=== PATIENT | male | born 1960 | race Caucasian/White ===

== ENCOUNTER 2017-11-09 08:02 | Inpatient (IN) | payer OTHER ==
[2017-11-09] MEDS ORDERED: Sodium Chloride 0.9% 1,000 ML IV ONE (08:55)
[2017-11-09 09:32] LABS: BASO % 0.6 % (0.0-2.0); EOS # 0.1 K/uL (0.0-0.7); EOS % 2.2 % (0.0-4.0); HEMOGLOBIN 14.6 g/dL (12.0-18.0); LYMPH # 1.9 K/uL (1.0-4.3); LYMPH % 28.8 % (20.0-40.0); MEAN CELL VOLUME 87.9 fL (80.0-94.0); MEAN CORPUSCULAR HEMOGLOBIN 30.1 pg (27.0-31.0); MEAN CORPUSCULAR HGB CONC 34.2 g/dL (33.0-37.0); MEAN PLATELET VOLUME 10.9 fL (7.2-11.7); MONO # 0.6 K/uL (0.0-0.8); NEUT # 3.9 K/uL (1.8-7.0); NEUT % 59.4 % (50.0-75.0); NRBC % 0.1 % (0.0-2.0); RBC 4.85 Mil/uL (4.40-5.90); RED CELL DISTRIBUTION WIDTH 12.7 % (11.5-14.5); WHITE BLOOD COUNT 6.5 K/uL (4.8-10.8)
[2017-11-09 09:52] LABS: ALT/SGPT 52 U/L (21-72); AST/SGOT 47 U/L (17-59); BLOOD UREA NITROGEN 14 mg/dL (9-20); CALCIUM 9.1 mg/dl (8.6-10.4); GFR NON-AFRICAN AMERICAN > 60
[2017-11-09 09:57] LABS: INR 1.1; PROTHROMBIN TIME 12.1 SECONDS (9.7-12.2)
[2017-11-09 10:05] LABS: ALB/GLOB RATIO 1.2 (1.0-2.1); ALBUMIN 4.7 g/dL (3.5-5.0)
[2017-11-09 10:06] LABS: SQUAMOUS EPITHIAL 8 /hpf (0-5); URINE BACTERIA RARE (<OCC); URINE BILIRUBIN NEGATIVE (NEGATIVE); URINE BLOOD NEGATIVE (NEGATIVE); URINE CLARITY Hazy (Clear); URINE COLOR Yellow (YELLOW); URINE GLUCOSE (UA) NORMAL (Normal); URINE LEUKOCYTE ESTERASE TRACE Leu/uL (Negative); URINE PROTEIN NEGATIVE (NEGATIVE); URINE UROBILINOGEN NORMAL mg/dL (0.2-1.0)
[2017-11-09] MEDS ORDERED: ceFAZolin 1 gm in NS 2 GM/200 ML BAG IVPB ONE (10:33)
[2017-11-09] MEDS ORDERED: Propofol 10 mg/ml Inj (20 ML) ONE (10:34)
[2017-11-09] MEDS ORDERED: Midazolam 2 MG/2 ML VIAL ONE (10:34)
[2017-11-09] MEDS ORDERED: Bupivacaine 0.25% 20 ML INJ IJ ONE (10:50)
[2017-11-09] MEDS ORDERED: Lidocaine Hydrochloride 10 ML INJ ONE (10:50)
[2017-11-09] MEDS ORDERED: HYDROmorphone 0.5 mg/0.5 ml ISec IVP PRN (11:28)
[2017-11-09] MEDS ORDERED: Oxycodone/Acetaminophen 5/325 mg Tab PO PRN (11:31)
[2017-11-09] MEDS ORDERED: Lactated Ringer's 1,000 ML IV ONE (15:10)
--- NOTE | 2017-11-09 16:21 | C.PDOC ---
History Of Present Illness 57 y/o male presents to ED with c/o pain to veins b/l thighs. PT notes that he had this for many years but pain worsened recently. Patient denies trauma, discharge, fever, redness, change in sensation, trauma, chest pain, sob, sym ptoms or any other complaints at this time. Time Seen by Provider: 11/09/17 08:31 Chief Complaint (Nursing): Medical Clearance History Per: Patient History/Exam Limitations: no limitations Onset/Duration Of Symptoms: Days Current Symptoms Are (Timing): Still Present Past Medical History Reviewed: Historical Data, Nursing Documentation, Vital Signs Vital Signs: Last Vital Signs Temp 98.4 F 11/10/17 17:36 Pulse 72 11/10/17 17:36 Resp 20 11/10/17 17:36 BP 128/73 11/10/17 17:36 Pulse Ox 99 11/11/17 22:29 - Medical History PMH: No Chronic Diseases Other Surgeries: nasal surgery Family History: States: [place] (cabg) - Social History Hx Alcohol Use: Yes Hx Substance Use: No Review Of Systems Constitutional: Negative for: Fever, Chills Musculoskeletal: Positive for: Leg Pain Skin: Negative for: Rash Neurological: Negative for: Weakness, Numbness Physical Exam - Physical Exam Appears: Non-toxic, No Acute Distress Skin: Warm, Dry, No Rash Head: Atraumatic, Normacephalic Eye(s): bilateral: Normal Inspection, EOMI Nose: Normal Oral Mucosa: Moist Neck: Normal ROM, Supple Chest: Symmetrical Cardiovascular: Rhythm Regular Respiratory: Normal Breath Sounds, No Rales, No Rhonchi, No Wheezing Extremity: Tenderness (Mild to left lateral thigh), Capillary Refill (<2 sec), No Deformity, Other (Spider veins bilaterally to lateral thighs. No erythema) Pulses: Left Dorsalis Pedis: Normal, Right Dorsalis Pedis: Normal Neurological/Psych: Oriented x3, Normal Speech, Normal Motor, Normal Sensation ED Course And Treatment - Laboratory Results Result Diagrams: 11/10/17 06:14 11/10/17 06:14 O2 Sat by Pulse Oximetry: 99 (RA) Pulse Ox Interpretation: Normal Progress Note: Case discussed with dr Yeboah who instructs admission under his service. Disposition - Disposition Disposition: HOSPITALIZED Disposition Time: 17:00 Condition: STABLE - Clinical Impression Clinical Impression: Spider veins - PA / [employer] / Resident Statement MD/DO has reviewed & agrees with the documentation as recorded. - Scribe Statement The provider has reviewed the documentation as recorded by the Gibran Mujica All medical record entries made by the Gibran were at my direction and personally dictated by me. I have reviewed the chart and agree that the record accurately reflects my personal performance of the history, physical exam, medical decision making, and the department course for this patient. I have also personally directed, reviewed, and agree with the discharge instructions and disposition.
[2017-11-09] MEDS: ceFAZolin IV 1 gm in Dextrose 1 GM/50 ML BAG IVPB SCH ×2 (19:30→21:10)
[2017-11-09 20:16] VITALS: RESP 20
--- NOTE | 2017-11-09 21:11 | CP.PCM.CON ---
History of Present Illness - History of Present Illness History of Present Illness: Medicine Consult Note - Dr Loera HPI: Patient is a 57 year old male with no significant past medical history who presented to the hospital for infected thigh veins bilaterally. Patient went to the OR with Dr Yeboah today for excision of bilateral tumors of hips. Patient tolerated the procedure well. He denies any pain at this time. He is ambulating and tolerating diet. Patient admitted overnight for IV antibiotics. He denies headaches, dizziness, fevers, chills, chest pain, palpitations, sob, abdominal pain, urinary symptoms, changes in bowel habits. PMD: Dr Loera Allergies: NKDA Medications: Denies Medical History: Denies Surgical History: Nasal fracture repair years ago Social History: Drinks alcohol occasionally, denies tobacco or drug use; works for [employer] Family History: Mother - [place], CABG (); Father - Prostate cancer, DM Past Patient History - Past Medical History & Family History Past Medical History?: Yes - Past Social History Smoking Status: Never Smoked - CARDIAC Hx Cardiac Disorders: No - PULMONARY Hx Respiratory Disorders: No - NEUROLOGICAL Hx Neurological Disorder: No - HEENT Hx HEENT Problems: No - RENAL Hx Chronic Kidney Disease: No - ENDOCRINE/METABOLIC Hx Endocrine Disorders: No - HEMATOLOGICAL/ONCOLOGICAL Hx Blood Disorders: No - INTEGUMENTARY Hx Dermatological Problems: No - MUSCULOSKELETAL/RHEUMATOLOGICAL Hx Musculoskeletal Disorders: No Hx Falls: No - GASTROINTESTINAL Hx Gastrointestinal Disorders: No - GENITOURINARY/GYNECOLOGICAL Hx Genitourinary Disorders: No - PSYCHIATRIC Hx Psychophysiologic Disorder: No Hx Substance Use: No - SURGICAL HISTORY Hx Surgeries: Yes Other/Comment: SCALP CYST REMOVAL, NOSE SX - ANESTHESIA Hx Anesthesia: Yes Hx Anesthesia Reactions: No Hx Malignant Hyperthermia: No Has any member of the family had a problem w/ anesthesia?: No Meds Allergies/Adverse Reactions: Allergies Allergy/AdvReac Type Severity Reaction Status Date / Time No Known Allergies Allergy Verified 11/09/17 08:10 - Medications Medications: Current Medications Docusate Sodium (Colace) 100 mg PO BID [facility] Lactated Ringer's (Lactated Ringer's) 1,000 mls @ 150 mls/hr IV .Q6H40M [facility] Cefazolin Sodium/Dextrose (Ancef Iv 1 Gm Duplex) 1 gm in 50 mls @ 100 mls/hr IVPB Q8H [facility] PRN Reason: Protocol Last Admin: 11/09/17 21:10 Dose: 100 mls/hr Ketorolac Tromethamine (Toradol) 30 mg IVP Q6 PRN PRN Reason: pain Stop: 11/14/17 11:32 Oxycodone/Acetaminophen (Percocet 5/325 Mg Tab) 2 tab PO Q4H PRN PRN Reason: pain] Stop: 11/12/17 11:32 Pantoprazole Sodium (Protonix Inj) 40 mg IVP DAILY [facility] Physical Exam - Constitutional Appears: Well, No Acute Distress - Head Exam Head Exam: ATRAUMATIC, NORMAL INSPECTION, NORMOCEPHALIC - Eye Exam Eye Exam: EOMI, Normal appearance - ENT Exam ENT Exam: Mucous Membranes Moist - Neck Exam Neck exam: Positive for: Full Rom - Respiratory Exam Respiratory Exam: Clear to Auscultation Bilateral, NORMAL BREATHING PATTERN. absent: Rales, Rhonchi, Wheezes - Cardiovascular Exam Cardiovascular Exam: REGULAR RHYTHM, +S1, +S2 - GI/Abdominal Exam GI & Abdominal Exam: Normal Bowel Sounds, Soft. absent: Guarding, Rebound, Rigid, Tenderness - Extremities Exam Additional comments: Left thigh: Dressing clean/dry/intact Right thigh: Dressing clean/dry/intact Moves all extremities, distal pulses intact bilaterally, sensation intact bilaterally - Back Exam Back exam: NORMAL INSPECTION - Neurological Exam Neurological exam: Alert, CN II-XII Intact, Oriented x3 - Psychiatric Exam Psychiatric exam: Normal Affect, Normal Mood - Skin Skin Exam: Dry, Normal Color, Warm Results - Vital Signs Recent Vital Signs: Last Vital Signs Temp 98.1 F 11/09/17 20:15 Pulse 70 11/09/17 20:15 Resp 20 11/09/17 20:15 BP 131/78 11/09/17 20:15 Pulse Ox 97 11/09/17 20:15 - Labs Result Diagrams: 11/09/17 09:11 11/09/17 09:11 Labs: Laboratory Results - last 24 hr 11/09/17 11/09/17 11/09/17 09:11 09:11 09:11 WBC 6.5 RBC 4.85 Hgb 14.6 Hct 42.6 MCV 87.9 MCH 30.1 MCHC 34.2 RDW 12.7 Plt Count 213 MPV 10.9 Neut % (Auto) 59.4 Lymph % (Auto) 28.8 [place] % (Auto) 9.0 Eos % (Auto) 2.2 Baso % (Auto) 0.6 Neut # (Auto) 3.9 Lymph # (Auto) 1.9 [place] # (Auto) 0.6 Eos # (Auto) 0.1 Baso # (Auto) 0.0 PT 12.1 INR 1.1 APTT 28 Sodium 140 Potassium 4.6 Chloride 104 Carbon Dioxide 24 Anion Gap 16 BUN 14 Creatinine 0.8 Est GFR ( Amer) > 60 Est GFR (Non-Af Amer) > 60 Random Glucose 137 H Calcium 9.1 Total Bilirubin 1.0 AST 47 ALT 52 Alkaline Phosphatase 63 Total Protein 8.5 H Albumin 4.7 Globulin 4.0 H Albumin/Globulin Ratio 1.2 Urine Color Urine Clarity Urine pH Ur Specific [place] Urine Protein Urine Glucose (UA) Urine Ketones Urine Blood Urine Nitrate Urine Bilirubin Urine Urobilinogen Ur Leukocyte Esterase Urine WBC (Auto) Urine RBC (Auto) Ur Squamous Epith Cells Urine Bacteria Blood Type Antibody Screen 11/09/17 11/09/17 09:53 09:53 WBC RBC Hgb Hct MCV MCH MCHC RDW Plt Count MPV Neut % (Auto) Lymph % (Auto) [place] % (Auto) Eos % (Auto) Baso % (Auto) Neut # (Auto) Lymph # (Auto) [place] # (Auto) Eos # (Auto) Baso # (Auto) PT INR APTT Sodium Potassium Chloride Carbon Dioxide Anion Gap BUN Creatinine Est GFR ( Amer) Est GFR (Non-Af Amer) Random Glucose Calcium Total Bilirubin AST ALT Alkaline Phosphatase Total Protein Albumin Globulin Albumin/Globulin Ratio Urine Color Yellow Urine Clarity Hazy Urine pH 5.0 Ur Specific [place] 1.017 Urine Protein Negative Urine Glucose (UA) Normal Urine Ketones Negative Urine Blood Negative Urine Nitrate Negative Urine Bilirubin Negative Urine Urobilinogen Normal Ur Leukocyte Esterase Trace Urine WBC (Auto) 8 H Urine RBC (Auto) 1 Ur Squamous Epith Cells 8 H Urine Bacteria Rare Blood Type A POSITIVE Antibody Screen Negative Assessment & Plan - Assessment and Plan (Free Text) Assessment: A/P: Patient is a 57 year old male with no significant past medical history who presented to the hospital for infected bilateral leg veins. Patient is s/p excision of bilateral tumors of hips, POD#0. Medicine consult requested for medical management. S/P excision of bilateral tumors of hips, POD#0 -Stable, afebrile -Admit for observation -Regular diet -F/U am labs -Continue IV Cefazolin 1gm Q8H NORMA -Continue IV fluid hydration -Pain control as needed -GI ppx: Protonix 40mg IVP daily -For possible discharge tomorrow after breakfast Plan discussed with Dr Evaristo Rodrigez DO PGY-2
--- NOTE | 2017-11-09 23:56 | OP ---
PROCEDURE DATE: 11/09/2017 PREOPERATIVE DIAGNOSIS: Infected bilateral hip masses. POSTOPERATIVE DIAGNOSIS: Infected bilateral hip masses. PROCEDURE PERFORMED: Wide deep excision of infected 5 cm bilateral hip masses with advancement flap closure. SURGEON: Maurice Yeboah MD ANESTHESIA: General. ESTIMATED BLOOD LOSS: 30 mL. POSTOPERATIVE CONDITION: Stable. INDICATIONS FOR SURGERY: This is a 57-year-old male admitted to the emergency room with bilateral infected masses of both hips. He is admitted for drainage and wide deep excision. DESCRIPTION OF PROCEDURE: The patient was taken to the operating room. General anesthesia was administered. Our attention was first turned to the left hip, which was prepped and draped. Transverse elliptical incision was made surrounding the mass into the fascia. Bleeding was controlled using a Bovie. Larger blood vessel was repaired. Wound was irrigated with saline. Full-thickness tissue flaps were raised including a counterincision. Advancement flap closures were performed using multiple layers of Monocryl, subcuticular Monocryl, and skin clips. The above was basically repeated on the right side. The patient tolerated the procedure well, returned to recovery room in stable condition. Maurice Yeboah MD
[2017-11-10] MEDS: Lactated Ringer's 1,000 ML IV SCH ×3 (01:06→15:13)
[2017-11-10] MEDS: ceFAZolin IV 1 gm in Dextrose 1 GM/50 ML BAG IVPB SCH (04:42)
[2017-11-10 06:27] LABS: BASO % 0.3 % (0.0-2.0); EOS # 0.1 K/uL (0.0-0.7); EOS % 1.9 % (0.0-4.0); LYMPH # 1.7 K/uL (1.0-4.3); LYMPH % 26.4 % (20.0-40.0); MEAN CORPUSCULAR HEMOGLOBIN 29.8 pg (27.0-31.0); MEAN CORPUSCULAR HGB CONC 33.9 g/dL (33.0-37.0); MEAN PLATELET VOLUME 10.3 fL (7.2-11.7); MONO # 0.6 K/uL (0.0-0.8); NEUT # 3.9 K/uL (1.8-7.0); NEUT % 62.4 % (50.0-75.0); RBC 4.34 Mil/uL (4.40-5.90); RED CELL DISTRIBUTION WIDTH 12.3 % (11.5-14.5); WHITE BLOOD COUNT 6.3 K/uL (4.8-10.8)
[2017-11-10 06:44] LABS: BLOOD UREA NITROGEN 13 mg/dL (9-20); CALCIUM 8.7 mg/dl (8.6-10.4); GFR NON-AFRICAN AMERICAN > 60
[2017-11-10 08:19] VITALS: PULSE 72
--- NOTE | 2017-11-10 15:32 | CP.PCM.PN ---
Subjective - Date & Time of Evaluation Date of Evaluation: 11/10/17 Time of Evaluation: 15:31 - Subjective Subjective: Adelso Choudhury PGY-1, Medicine progress note for Dr. Loera Pt was seen and examined at bedside. Pt is resting comfortably and has no co mplaints at this time. No acute events overnight. Pt denies fever, chills, headache, dizziness, chest pain, SOB, abdominal pain, n/v/d, urinary complaints, difficulty ambulating. A 12-point ROS was reviewed and is otherwise unremarkable. Objective - Vital Signs/Intake and Output Vital Signs (last 24 hours): Temp Pulse Resp BP Pulse Ox 98.2 F 72 20 122/64 96 11/10/17 08:10 11/10/17 08:10 11/10/17 08:10 11/10/17 08:10 11/10/17 08:10 Intake and Output: 11/10/17 11/10/17 06:59 18:59 Intake Total 1600 Balance 1600 - Medications Medications: Current Medications Docusate Sodium (Colace) 100 mg PO BID [facility] Last Admin: 11/10/17 09:48 Dose: 100 mg Lactated Ringer's (Lactated Ringer's) 1,000 mls @ 150 mls/hr IV .Q6H40M [facility] Last Admin: 11/10/17 15:13 Dose: Not Given Cefazolin Sodium/Dextrose (Ancef Iv 1 Gm Duplex) 1 gm in 50 mls @ 100 mls/hr IVPB Q8H [facility]; Protocol Last Admin: 11/10/17 04:42 Dose: 100 mls/hr Ketorolac Tromethamine (Toradol) 30 mg IVP Q6 PRN PRN Reason: pain Stop: 11/14/17 11:32 Oxycodone/Acetaminophen (Percocet 5/325 Mg Tab) 2 tab PO Q4H PRN PRN Reason: pain] Stop: 11/12/17 11:32 Pantoprazole Sodium (Protonix Inj) 40 mg IVP DAILY [facility] Last Admin: 11/10/17 09:48 Dose: 40 mg - Labs Labs: 11/10/17 06:14 11/10/17 06:14 PT 12.1 SECONDS (9.7-12.2) 11/09/17 09:11 INR 1.1 11/09/17 09:11 APTT 28 SECONDS (21-34) 11/09/17 09:11 - Constitutional Appears: Well, Non-toxic, No Acute Distress - Head Exam Head Exam: ATRAUMATIC, NORMAL INSPECTION - Eye Exam Eye Exam: EOMI, Normal appearance - ENT Exam ENT Exam: Mucous Membranes Moist - Neck Exam Neck Exam: Normal Inspection - Respiratory Exam Respiratory Exam: Clear to Ausculation Bilateral, NORMAL BREATHING PATTERN. absent: Rhonchi, Wheezes, Respiratory Distress - Cardiovascular Exam Cardiovascular Exam: REGULAR RHYTHM, +S1, +S2 - GI/Abdominal Exam GI & Abdominal Exam: Soft, Normal Bowel Sounds. absent: Tenderness - Extremities Exam Additional comments: (+) dressing applied to left lateral thigh; C/D/I, no signs of infection or bleeding; nontender (+) dressing applied to right lateral thigh; C/D/I, no signs of infection or bleeding; nontender FROM of lower extremities, 3+ DPs, sensation intact bilaterally - Back Exam Back Exam: NORMAL INSPECTION - Neurological Exam Neurological Exam: Alert, Awake, Oriented x3 - Psychiatric Exam Psychiatric exam: Normal Affect, Normal Mood - Skin Skin Exam: Dry, Normal Color, Warm Assessment and Plan - Assessment and Plan (Free Text) Assessment: This is a 57 year old male with no significant past medical history who presented to the hospital for infected bilateral leg veins, s/p excision of bilateral tumors of hips, POD#1. Medicine consult requested for medical anca tavarez. S/P excision of bilateral tumors of hips, POD#1 - Pt is hemodynamically stable - No signs of infection, pt nontachycardic and afebrile - Pt will be discharged with PO medications, and follow up with Dr. Yeboah in the office Dispo: Pt is medically stable and safe for discharge home as per Dr. Yeboah's instructions. Instructed to follow up with Dr. Yeboah. Will sign off, and f/u with pt in the office as regularly scheduled. Case was reviewed and discussed with attending physician, Dr. Loera. All medical management as per Dr. Loera. Adelso Choudhury PGY-1
[2017-11-10 17:37] VITALS: BP 128/73; TEMP 98.4
[2017-11-11 22:30] VITALS: O2SAT 99
== END 2017-11-10 17:56 | disposition home or self-care (01) | DRG 578 ==
LOC: C.ER 08:02 → C.OPSURG 08:02 → C.ER 09:55 → C.SDS 10:18 → C.9S 11:32 → C.3T 19:33
PROVIDERS: ADMIT Surgery; ATTEND Surgery
PROC: 0HXJXZZ Transfer Left Upper Leg Skin, External Approach (ICD-10-PCS; 2017-11-09)
PROC: 0JBL0ZZ Excision of Right Upper Leg Subcutaneous Tissue and Fascia, Open Approach (ICD-10-PCS; 2017-11-09)
PROC: 0HXHXZZ Transfer Right Upper Leg Skin, External Approach (ICD-10-PCS; 2017-11-09)
PROC: 0JBM0ZZ Excision of Left Upper Leg Subcutaneous Tissue and Fascia, Open Approach (ICD-10-PCS; principal; 2017-11-09 09:45)
DX: D17.79 Benign lipomatous neoplasm of other sites (principal); D18.09 Hemangioma of other sites; I83.93 Asymptomatic varicose veins of bilateral lower extremities; Z80.42 Family history of malignant neoplasm of prostate